=== PATIENT | female | born 1990 | race Caucasian/White ===

== ENCOUNTER 2017-03-30 08:23 | Outpatient (CLI) | payer OTHER ==
--- NOTE | 2017-03-30 11:31 | Ultrasound Report ---
RIGHT UPPER QUADRANT ULTRASOUND: 03/30/2017 CLINICAL INDICATION: Abnormal LFTs. TECHNIQUE: Real-time scanning was performed with financial services sales representative static images obtained. FINDINGS: The liver measures 15.4 cm. Hepatic echotexture is normal. No intrahepatic biliary dilatat ion or focal parenchymal lesion is present. The common bile duct measures 3 mm. The gallbladder is no rmal. The right kidney measures 9.7 cm, and demonstrates no hydronephrosis. No free fluid is present. IMPRESSION: NORMAL RIGHT UPPER QUADRANT ULTRASOUND. JOB #: [id number] EXT JOB #:[id number]
== END 2017-03-30 08:24 | disposition home or self-care (01) ==
LOC: DI 08:23
PROVIDERS: ATTEND Physician Assistant
DX: R94.5 Abnormal results of liver function studies (principal)
CPT/HCPCS: 76705

== ENCOUNTER 2017-12-08 08:59 | Outpatient (CLI) | payer OTHER ==
[2017-12-08 12:06] VITALS: BP 127/79
--- NOTE | 2017-12-08 12:42 | HISTORY & PHYSICAL EXAMINATION ---
DATE OF SERVICE: 12/08/2017 Physician: Edgar Bradley MD DIAGNOSES 1. Decreased movement. 2. Reactive nonstress test (NST). HISTORY OF PRESENT ILLNESS: The patient is a 27-year-old multiparous woman, at 38 weeks' gestation, who notes decreased movement. She receives her care at the [facility] clinic, which is currently on bypass status. Over the last 10 hours she does not notice much movement, despite hydration and stimulating the fetus. She has no history of gestational diabetes, hypertension, or other increased risk. There are no signs or symptoms of preeclampsia. She does not relate any significant contractions, but believes she has lost her mucous plug. External tracing is category 1. Baseline is in the 130s with moderate variability and appropriate decelerations to meet criteria (over 15 beats sustained for 15 minutes in a 20-minute window). ASSESSMENT: Reactive nonstress test (NST). PLAN: I reviewed signs and symptoms of labor and callback instructions. She will follow up as previously scheduled at the [facility]. TD: 12/08/2017 11:57
== END 2017-12-08 10:30 | disposition home or self-care (01) ==
LOC: WFO 08:59 → FBP 09:04 → WFO 10:30
PROVIDERS: ATTEND Obstetrics & Gynecology
DX: O36.8130 Decreased fetal movements, third trimester, not applicable or unspecified (principal); Z3A.38 38 weeks gestation of pregnancy
CPT/HCPCS: 59025

== ENCOUNTER 2017-12-19 12:21 | Emergency (ER) | payer OTHER ==
[2017-12-19 12:41] VITALS: BP 114/74
--- NOTE | 2017-12-19 13:18 | ED Physician Documentation ---
PD HPI ABD PAIN - Stated complaint Stated Complaint: ABD PX/ 5 DAY POSTPARDOM - Chief complaint Chief Complaint: Abd Pain - History obtained from History obtained from: Patient - History of Present Illness Timing - onset: Today Timing - duration: Hours (2-3) Timing - details: Abrupt onset, Still present (though decreasing) Quality: Cramping, Aching (she has had mild cramping since delivery 5 days ago with mild vaginal bleeding and some clots. Today had severe cramp develop, worse than with labor, in left lower abd/pelvic area. It persisted cramping for an hour or so and so she headed to ER. It is easing on arrival and into the ER.) . No: Fullness/distended Location: Suprapubic, LLQ Radiation: Lower back. No: Left flank, Right flank Improved by: Position (knees drawn up). No: Eating Worsened by: No: Eating, Breathing, Position Associated symptoms: Nausea, Loss of appetite, Vaginal bleeding (expected amount post , per patient (this is her third delivery)). No: Fever, Vomiting, Diarrhea, Dysuria, Vaginal dc Recently seen: Admitted (had vaginal delivery with epidural 5 days ago. is acting okay.) Review of Systems Constitutional: denies: Fever, Chills Nose: denies: Rhinorrhea / runny nose, Congestion Throat: denies: Sore throat Respiratory: denies: Cough GI: reports: Abdominal Pain, Nausea. denies: Abdominal Swelling, Vomiting, Constipation (but only one soft BM since delivery), Diarrhea : denies: Dysuria, Frequency Skin: denies: Rash, Lesions Neurologic: reports: Generalized weakness. denies: Focal weakness, Numbness, Near syncope, Altered mental status, Headache Endocrine: denies: Easy bruising / bleeding Immunocompromised: denies: Immunocompromised PD PAST MEDICAL HISTORY - Past Medical History Past Medical History: No - Past Surgical History HEENT: Tonsil/Adenoidectomy - Present Medications Home Medications: Ambulatory Orders Medication Instructions Recorded Confirmed No Known Home Medications [No 12/19/17 12/19/17 Known Home Medications] - Allergies Allergies/Adverse Reactions: Allergies Allergy/AdvReac Type Severity Reaction Status Date / Time No Known Drug Allergies Allergy Verified 12/19/17 12:40 - Social History Does the pt smoke?: No Smoking Status: Never smoker Does the pt drink ETOH?: No Does the pt have substance abuse?: No PD ED PE NORMAL - Vitals Vital signs reviewed: Yes - General General: Alert and oriented X 3, No acute distress, Well developed/nourished - HEENT HEENT: Pharynx benign - Neck Neck: Supple, no meningeal sign, No adenopathy - Cardiac Cardiac: RRR, No murmur - Respiratory Respiratory: Clear bilaterally - Abdomen Abdomen: Normal bowel sounds, Soft, Non distended, No organomegaly, Other ( tender left lower abd without guarding nor percussion/rebound tenderness. ) - Female Female : Other (did not get to it, if needed) - Rectal Rectal: Deferred - Back Back: No CVA TTP - Derm Derm: Normal color, Warm and dry - Extremities Extremities: No deformity, No tenderness to palpate, No edema, No calf tenderness / cord - Neuro Neuro: Alert and oriented X 3, No motor deficit, Normal speech Results - Vitals Vitals: Vital Signs - 24 hr 12/19/17 12:34 Temperature 36.3 C L Heart Rate 66 Respiratory 18 Rate Blood Pressure 114/74 O2 Saturation 98 Oxygen O2 Source Room air - Labs Labs: Laboratory Tests 12/19/17 13:50 Urine Color YELLOW Urine Clarity CLEAR Urine pH 6.0 Ur Specific [place] 1.020 Urine Protein NEGATIVE Urine Glucose (UA) NEGATIVE Urine Ketones NEGATIVE Urine Occult Blood LARGE H Urine Nitrite NEGATIVE Urine Bilirubin NEGATIVE Urine Urobilinogen 0.2 (NORMAL) Ur Leukocyte Esterase NEGATIVE Urine RBC 11-25 H Urine WBC 0-3 Ur Squamous Epith Cells MOD Squamous H Urine Bacteria Few Ur Microscopic Review INDICATED Urine Culture Comments NOT INDICATED PD MEDICAL DECISION MAKING - ED course Complexity details: re-evaluated patient (ER was busy and U/S had some backup. Patient felt better and she wanted to go home, return if symptoms again. She was wanting to nurse her and did not want the baby to come back into the ER from the waiting room. ), considered differential (consider ovarian cyst or torsion, does not seem to have signs of infection. Consider ureteral stone. I would get U/S to evaluate ovaries and potential retained products. Might have been strong uterine contraction if passing a clot. ), d/w patient - Sepsis Event Vital Signs: Vital Signs - 24 hr 12/19/17 12:34 Temperature 36.3 C L Heart Rate 66 Respiratory 18 Rate Blood Pressure 114/74 O2 Saturation 98 Oxygen O2 Source Room air Departure - Departure Disposition: 07 Against Medical Advice Clinical Impression: Abdominal pain Qualifiers: Abdominal location: left lower quadrant Qualified Code(s): R10.32 - Left lower quadrant pain Condition: Stable Record reviewed to determine appropriate education?: Yes Follow-Up: Edgar Zuñiga MD [Primary Care Provider] - Comments: Return if pain recurs, or if you develop fevers, vomiting, bloody stools, unusual vaginal discharge/bleeding, etc. Discharge Date/Time: 12/19/17 14:14
[2017-12-19 14:15] LABS: BILIRUBIN,URINE NEGATIVE (NEGATIVE); GLUCOSE, URINE (UA) NEGATIVE (NEGATIVE); KETONES,URINE (UA) NEGATIVE (NEGATIVE); LEUKOCYTE ESTERASE, URINE NEGATIVE (NEGATIVE); NITRITE,URINE NEGATIVE (NEGATIVE); OCCULT BLOOD,URINE LARGE (NEGATIVE); PROTEIN,URINE NEGATIVE (NEGATIVE); UROBILINOGEN,URINE 0.2 (NORMAL) E.U./dL (NORMAL)
[2017-12-19 14:16] LABS: CLARITY,URINE CLEAR (CLEAR)
[2017-12-19 14:25] LABS: BACTERIA,URINE Few /HPF (None Seen); SQUAMOUS EPITHELIAL CELL,UR MOD Squamous (<= Few)
== END 2017-12-19 14:14 | disposition left against medical advice (07) ==
LOC: ED 12:21
DX: Z53.20 Procedure and treatment not carried out because of patient's decision for unspecified reasons (principal); O99.89 Other specified diseases and conditions complicating pregnancy, childbirth and the puerperium; R10.32 Left lower quadrant pain; N93.9 Abnormal uterine and vaginal bleeding, unspecified
CPT/HCPCS: 81001; 81003; 87086; 99283

== ENCOUNTER 2022-04-23 18:03 | Emergency (ER) | payer OTHER ==
--- OUTSIDE RECORDS SUMMARY | 2022-04-23 18:39 | EXTERNAL MEDICAL SUMMARY RPT | Continuity of Care Document ---
:1990 Author Organization [facility] Address [address] [place] [address] Phone Allergies No information. Encounters No information. Functional Status No information. Immunizations No information. Medications No information. Problems No information. Procedures No information. Results/Labs test date author facility value unit interpret ation Result panel 1 (unknown) (no (unknown) (unknown) (no value) (units (unk nown) date) unknown) (unknown) (no (unknown) (unknown) 02/16/22 (units (unkno wn) date) unknown) (unknown) (no (unknown) (unknown) [address] [place] [address] (units (unknown) date) unknown) (unknown) (no (unknown) (unknown) 7.9 cc. The (units (un known) date) ovaries have a unknown) normal sonographic appearance. Multiple follicles (unknown) (no (unknown) (unknown) : [id number] (units (u nknown) date) unknown) (unknown) (no (unknown) (unknown) Accession (units (unkn own) date) Number: unknown) [id number] (unknown) (no (unknown) (unknown) Additional (units (unk nown) date) endovaginal unknown) scanning was necessary due to incomplete visualization (unknown) (no (unknown) (unknown) Age/Sex: 31 / F (units (unknown) date) Date of Service: unknown) (unknown) (no (unknown) (unknown) [place] (units ( unknown) date) [id number] unknown) (unknown) (no (unknown) (unknown) Approved by: (units (u nknown) date) Tc Lopez M.D. on unknown) 02/16/2022 at 8:50 (unknown) (no (unknown) (unknown) COMPARISON: (units (un known) date) None. unknown) (unknown) (no (unknown) (unknown) : 1990 (units (unknown) date) Acct:[id number] unknown) (unknown) (no (unknown) (unknown) Dictated by: (units (u nknown) date) Tc Lopez M.D. on unknown) 02/16/2022 at 8:37 (unknown) (no (unknown) (unknown) FINDINGS: (units (unkn own) date) unknown) (unknown) (no (unknown) (unknown) IMPRESSION: (units (un known) date) Pelvic ultrasound unknown) without acute sonographic abnormalities. (unknown) (no (unknown) (unknown) INDICATIONS: (units (u nknown) date) pelvic pain and unknown) cramping (unknown) (no (unknown) (unknown) [facility] (units (unknown) date) unknown) (unknown) (no (unknown) (unknown) Loc: [place] (units (unkno wn) date) unknown) (unknown) (no (unknown) (unknown) Ordering (units (unkno wn) date) Provider: unknown) Jesus Manuel Ma MD (unknown) (no (unknown) (unknown) Other: No (units (unkn own) date) pathologic free unknown) abdominal or pelvic fluid. (unknown) (no (unknown) (unknown) Ovaries: The (units (u nknown) date) right ovary unknown) measures 3.6 x 2.8 x 2.8 cm, with a calculated (unknown) (no (unknown) (unknown) PROCEDURE: US (units ( unknown) date) PELVIC COMPLETE unknown) (unknown) (no (unknown) (unknown) Patient: (units (unkno wn) date) Iliana Lockwood unknown) A MR# (unknown) (no (unknown) (unknown) Procedure: US (units ( unknown) date) pelvic complete unknown) (unknown) (no (unknown) (unknown) Real-time (units (unkn own) date) scanning was unknown) performed of the pelvic organs, with image (unknown) (no (unknown) (unknown) Signed (units (unkno wn) date) unknown) (unknown) (no (unknown) (unknown) TECHNIQUE: (units (unk nown) date) unknown) (unknown) (no (unknown) (unknown) To assist (units (unkn own) date) unknown) (unknown) (no (unknown) (unknown) Ultrasound (units (unk nown) date) Report unknown) (unknown) (no (unknown) (unknown) Uterus: Uterus (units (unknown) date) is anteverted and unknown) normal in size at 9.1 x 3.8 x 6.0 cm. The (unknown) (no (unknown) (unknown) Vascular (units (unkno wn) date) waveforms are unknown) present within the bilateral ovaries. (unknown) (no (unknown) (unknown) We strive to (units (u nknown) date) produce accurate, unknown) complete, and clear reports of imaging services. (unknown) (no (unknown) (unknown) adnexal and (units (un known) date) endometrial unknown) structures by transabdominal scanning. (unknown) (no (unknown) (unknown) and voice (units (unkn own) date) recognition unknown) software. Therefore, it may contain abnormal punctuation, (unknown) (no (unknown) (unknown) are noted (units (unkn own) date) unknown) (unknown) (no (unknown) (unknown) documentation. (units (unknown) date) unknown) (unknown) (no (unknown) (unknown) homogeneous. The (units (unknown) date) endometrium unknown) measures 4 mm combined thickness. (unknown) (no (unknown) (unknown) in the bilateral (units (unknown) date) ovaries. No unknown) adnexal masses are seen. (unknown) (no (unknown) (unknown) inaccuracies. (units ( unknown) date) unknown) (unknown) (no (unknown) (unknown) insertions (units (unk nown) date) and/or omissions. unknown) Occasional wrong-word or sound-alike substitutions (unknown) (no (unknown) (unknown) may (units (unkno wn) date) unknown) (unknown) (no (unknown) (unknown) myometrium is (units ( unknown) date) unknown) (unknown) (no (unknown) (unknown) occur. Though we (units (unknown) date) review the report unknown) and make efforts to correct it, we do (unknown) (no (unknown) (unknown) of 15 cc. The (units ( unknown) date) left ovary unknown) measures 2.1 x 2.9 x 2.5 cm, with a calculated ovarian (unknown) (no (unknown) (unknown) of the (units (unkno wn) date) unknown) (unknown) (no (unknown) (unknown) ovarian volume (units (unknown) date) unknown) (unknown) (no (unknown) (unknown) recommend that (units (unknown) date) unknown) (unknown) (no (unknown) (unknown) templates (units (unkn own) date) unknown) (unknown) (no (unknown) (unknown) the report be (units ( unknown) date) read carefully in unknown) proper context to recognize any text (unknown) (no (unknown) (unknown) us in improving (units (unknown) date) patient care, unknown) this report was composed using standard report (unknown) (no (unknown) (unknown) volume of (units (unkn own) date) unknown) Result panel 2 (unknown) (no (unknown) (unknown) (no value) (units (unk nown) date) unknown) (unknown) (no (unknown) (unknown) 03/22/22 (units (unkno wn) date) unknown) (unknown) (no (unknown) (unknown) Age/Sex: 32 / F (units (unknown) date) Date of Service: unknown) (unknown) (no (unknown) (unknown) [place] (units ( unknown) date) [id number] unknown) (unknown) (no (unknown) (unknown) Attending Dr: (units ( unknown) date) Jesus Manuel Ma unknown) (unknown) (no (unknown) (unknown) : 1990 (units (unknown) date) Acct:[id number] unknown) (unknown) (no (unknown) (unknown) Dept at (units (unkno wn) date) . unknown) (unknown) (no (unknown) (unknown) Documented By: (units (unknown) date) Jesus Manuel Ma unknownShe MATUTE 03/22/22 1501 (unknown) (no (unknown) (unknown) Draft (units (unkno wn) date) unknown) (unknown) (no (unknown) (unknown) [facility] ([facility]) (unknown) (no (unknown) (unknown) Gynecology Visit (units (unknown) date) unknown) (unknown) (no (unknown) (unknown) Intake (units (unkno wn) date) unknown) (unknown) (no (unknown) (unknown) Loc: [facility] (units (unkno wn) date) unknown) (unknown) (no (unknown) (unknown) [id number] (units (unk nown) date) unknown) (unknown) (no (unknown) (unknown) Patient: (units (unkno wn) date) Iliana Lockwood unknown) Abdiaziz MR#: (unknown) (no (unknown) (unknown) Reason For Visit (units (unknown) date) unknown) (unknown) (no (unknown) (unknown) Signed By: (units (unk nown) date) unknown) (unknown) (no (unknown) (unknown) This note may (units ( unknown) date) have been all or unknown) partially generated using voice recognition (unknown) (no (unknown) (unknown) Visit Reasons: (units (unknown) date) 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 (units (unknown) date) If there are any unknown) questions, please contact the Medical Records (unknown) (no (unknown) (unknown) may occur. (units (unk nown) date) Occasional unknown) wrong-word or 'sound-alike' substitutions may have (unknown) (no (unknown) (unknown) occurred due to (units (unknown) date) the inherent unknown) limitations of voice recognition software. Please (unknown) (no (unknown) (unknown) read the note (units ( unknown) date) carefully and unknown) recognize, using context, where these substitutions (unknown) (no (unknown) (unknown) software. (units (unkn own) date) Although every unknown) effort is made to edit content, hot car operator errors Result panel 3 (unknown) (no (unknown) (unknown) (no value) (units (unk nown) date) unknown) (unknown) (no (unknown) (unknown) 03/22/22 (units (unkno wn) date) unknown) (unknown) (no (unknown) (unknown) 15:06 (units (unkno wn) date) unknown) (unknown) (no (unknown) (unknown) Age/Sex: 32 / F (units (unknown) date) Date of Service: unknown) (unknown) (no (unknown) (unknown) Allergies (units (unkn own) date) unknown) (unknown) (no (unknown) (unknown) [place], [place] (units ( unknown) date) [id number] unknown) (unknown) (no (unknown) (unknown) Attending Dr: (units ( unknown) date) Jesus Manuel Ma unknown) (unknown) (no (unknown) (unknown) BMI 25.8 (units (unkno wn) date) unknown) (unknown) (no (unknown) (unknown) BP 112/66 (units (unkn own) date) unknown) (unknown) (no (unknown) (unknown) Blood Pressure (units (unknown) date) Location Rt unknown) brachial (unknown) (no (unknown) (unknown) : 1990 (units (unknown) date) Acct:[id number] unknown) (unknown) (no (unknown) (unknown) Date of Last (units (u nknown) date) Menstrual Period: unknown) 03/08/22 (unknown) (no (unknown) (unknown) Dept at (units (unkno wn) date) . unknown) (unknown) (no (unknown) (unknown) Documented By: (units (unknown) date) Jesus Manuel Ma unknownShe MATUTE 03/22/22 1501 (unknown) (no (unknown) (unknown) Draft (units (unkno wn) date) unknown) (unknown) (no (unknown) (unknown) [facility]) (unknown) (no (unknown) (unknown) Gynecology Visit (units (unknown) date) unknown) (unknown) (no (unknown) (unknown) Height 5 ft 8 in (units (unknown) date) unknown) (unknown) (no (unknown) (unknown) Intake Note: (units (u nknown) date) unknown) (unknown) (no (unknown) (unknown) Intake performed (units (unknown) date) by: unknown) Erica Ch (unknown) (no (unknown) (unknown) Intake (units (unkno wn) date) unknown) (unknown) (no (unknown) (unknown) Intake- Clincial (units (unknown) date) Staff unknown) (unknown) (no (unknown) (unknown) Is last (units (unkno wn) date) menstrual period unknown) known: Yes (unknown) (no (unknown) (unknown) Last Menstural (units (unknown) date) Cycle + Details unknown) (unknown) (no (unknown) (unknown) Loc: [facility] (units (unkno wn) date) unknown) (unknown) (no (unknown) (unknown) [phone] (units (unk nown) date) unknown) (unknown) (no (unknown) (unknown) Medications (units (un known) date) unknown) (unknown) (no (unknown) (unknown) No Known Drug (units ( unknown) date) Allergies Allergy unknown) (Unverified 03/22/22 15:08) (unknown) (no (unknown) (unknown) No Known Home (units ( unknown) date) Medications unknown) 03/22/22 [History Confirmed 03/22/22] (unknown) (no (unknown) (unknown) 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 unknown) and poss hyperplasia (unknown) (no (unknown) (unknown) PFSH (units (unkno wn) date) unknown) (unknown) (no (unknown) (unknown) Patient: (units (unkno wn) date) Iliana Lockwood unknown) A MR#: (unknown) (no (unknown) (unknown) Position Sitting (units (unknown) date) unknown) (unknown) (no (unknown) (unknown) Reason For Visit (units (unknown) date) unknown) (unknown) (no (unknown) (unknown) Signed By: (units (unk nown) date) unknown) (unknown) (no (unknown) (unknown) Smoking Status: (units (unknown) date) Former smoker unknown) (unknown) (no (unknown) (unknown) This note may (units ( unknown) date) have been all or unknown) partially generated using voice recognition (unknown) (no (unknown) (unknown) Tobacco + (units (unkn own) date) Substance Use unknown) (unknown) (no (unknown) (unknown) Tobacco Status (units (unknown) date) unknown) (unknown) (no (unknown) (unknown) Visit Reasons: (units (unknown) date) 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 (units (unknown) date) If there are any unknown) questions, please contact the Medical Records (unknown) (no (unknown) (unknown) may occur. (units (unk nown) date) Occasional unknown) wrong-word or 'sound-alike' substitutions may have (unknown) (no (unknown) (unknown) occurred due to (units (unknown) date) the inherent unknown) limitations of voice recognition software. Please (unknown) (no (unknown) (unknown) pain. no (units (unkno wn) date) bleeding. unknown) happening since June (unknown) (no (unknown) (unknown) pelvis floor (units (u nknown) date) problems, unknown) randomly feels like she is going to pee her pants (unknown) (no (unknown) (unknown) pt states it (units (u nknown) date) feels like she is unknown) on her period all month with cramping and back (unknown) (no (unknown) (unknown) read the note (units ( unknown) date) carefully and unknown) recognize, using context, where these substitutions (unknown) (no (unknown) (unknown) software. (units (unkn own) date) Although every unknown) effort is made to edit content, hot car operator errors Result panel 4 (unknown) (no (unknown) (unknown) (no value) (units (unk nown) date) unknown) (unknown) (no (unknown) (unknown) 03/22/22 (units (unkno wn) date) unknown) (unknown) (no (unknown) (unknown) 15:06 (units (unkno wn) date) unknown) (unknown) (no (unknown) (unknown) Age/Sex: 32 / F (units (unknown) date) Date of Service: unknown) (unknown) (no (unknown) (unknown) Allergies (units (unkn own) date) unknown) (unknown) (no (unknown) (unknown) [place], [place] (units ( unknown) date) [id number] unknown) (unknown) (no (unknown) (unknown) Attending Dr: (units ( unknown) date) Jesus Manuel Ma unknown) (unknown) (no (unknown) (unknown) BMI 25.8 (units (unkno wn) date) unknown) (unknown) (no (unknown) (unknown) BP 112/66 (units (unkn own) date) unknown) (unknown) (no (unknown) (unknown) Blood Pressure (units (unknown) date) Location Rt unknown) brachial (unknown) (no (unknown) (unknown) Chief Complaint (units (unknown) date) unknown) (unknown) (no (unknown) (unknown) Chief Complaint: (units (unknown) date) Lower abdominal unknown) pain (unknown) (no (unknown) (unknown) Iliana is a (units (unknown) date) 32-year-old unknown) A1 (unknown) (no (unknown) (unknown) : 1990 (units (unknown) date) Acct:[id number] unknown) (unknown) (no (unknown) (unknown) Date of Last (units (u nknown) date) Menstrual Period: unknown) 03/08/22 (unknown) (no (unknown) (unknown) Dept at (units (unkno wn) date) . unknown) (unknown) (no (unknown) (unknown) Details: (units (unkno wn) date) unknown) (unknown) (no (unknown) (unknown) Documented By: (units (unknown) date) Jesus Manuel Ma unknown) 03/22/22 1501 (unknown) (no (unknown) (unknown) Draft (units (unkno wn) date) unknown) (unknown) (no (unknown) (unknown) [facility]) (unknown) (no (unknown) (unknown) Gynecology Visit (units (unknown) date) unknown) (unknown) (no (unknown) (unknown) HPI (units (unkno wn) date) unknown) (unknown) (no (unknown) (unknown) Height 5 ft 8 in (units (unknown) date) unknown) (unknown) (no (unknown) (unknown) Intake Note: (units (u nknown) date) unknown) (unknown) (no (unknown) (unknown) Intake performed (units (unknown) date) by: unknown) Erica Ch (unknown) (no (unknown) (unknown) Intake (units (unkno wn) date) unknown) (unknown) (no (unknown) (unknown) Intake- Clincial (units (unknown) date) Staff unknown) (unknown) (no (unknown) (unknown) Is last (units (unkno wn) date) menstrual period unknown) known: Yes (unknown) (no (unknown) (unknown) Last Menstural (units (unknown) date) Cycle + Details unknown) (unknown) (no (unknown) (unknown) Loc: [facility] (units (unkno wn) date) unknown) (unknown) (no (unknown) (unknown) [id number] (units (unk nown) date) unknown) (unknown) (no (unknown) (unknown) Medications (units (un known) date) unknown) (unknown) (no (unknown) (unknown) No Known Drug (units ( unknown) date) Allergies Allergy unknown) (Unverified 03/22/22 15:08) (unknown) (no (unknown) (unknown) No Known Home (units ( unknown) date) Medications unknown) 03/22/22 [History Confirmed 03/22/22] (unknown) (no (unknown) (unknown) 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 unknown) and poss hyperplasia (unknown) (no (unknown) (unknown) PFSH (units (unkno wn) date) unknown) (unknown) (no (unknown) (unknown) Patient: (units (unkno wn) date) PastorIliana orozco unknown) A MR#: (unknown) (no (unknown) (unknown) Position Sitting (units (unknown) date) unknown) (unknown) (no (unknown) (unknown) Reason For Visit (units (unknown) date) unknown) (unknown) (no (unknown) (unknown) Signed By: (units (unk nown) date) unknown) (unknown) (no (unknown) (unknown) Smoking Status: (units (unknown) date) Former smoker unknown) (unknown) (no (unknown) (unknown) This note may (units ( unknown) date) have been all or unknown) partially generated using voice recognition (unknown) (no (unknown) (unknown) Tobacco + (units (unkn own) date) Substance Use unknown) (unknown) (no (unknown) (unknown) Tobacco Status (units (unknown) date) unknown) (unknown) (no (unknown) (unknown) Visit Reasons: (units (unknown) date) 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 (units (unknown) date) If there are any unknown) questions, please contact the Medical Records (unknown) (no (unknown) (unknown) may occur. (units (unk nown) date) Occasional unknown) wrong-word or 'sound-alike' substitutions may have (unknown) (no (unknown) (unknown) occurred due to (units (unknown) date) the inherent unknown) limitations of voice recognition software. Please (unknown) (no (unknown) (unknown) pain. no (units (unkno wn) date) bleeding. unknown) happening since June (unknown) (no (unknown) (unknown) pelvis floor (units (u nknown) date) problems, unknown) randomly feels like she is going to pee her pants (unknown) (no (unknown) (unknown) pt states it (units (u nknown) date) feels like she is unknown) on her period all month with cramping and back (unknown) (no (unknown) (unknown) read the note (units ( unknown) date) carefully and unknown) recognize, using context, where these substitutions (unknown) (no (unknown) (unknown) software. (units (unkn own) date) Although every unknown) effort is made to edit content, hot car operator errors Result panel 5 (unknown) (no (unknown) (unknown) (no value) (units (unk nown) date) unknown) (unknown) (no (unknown) (unknown) (Localized (units (unk nown) date) tenderness unknown) primarily in the right lower quadrant) (unknown) (no (unknown) (unknown) 10 month history (units (unknown) date) of intermittent unknown) lower abdominal pain which radiates to the low (unknown) (no (unknown) (unknown) 03/22/22 (units (unkno wn) date) unknown) (unknown) (no (unknown) (unknown) 15:06 (units (unkno wn) date) unknown) (unknown) (no (unknown) (unknown) Affect: normal (units (unknown) date) affect unknown) (unknown) (no (unknown) (unknown) Age/Sex: 32 / F (units (unknown) date) Date of Service: unknown) (unknown) (no (unknown) (unknown) Allergies (units (unkn own) date) unknown) (unknown) (no (unknown) (unknown) [place], [place] (units ( unknown) date) [id number] unknown) (unknown) (no (unknown) (unknown) Appearance: (units (un known) date) grossly normal unknown) (unknown) (no (unknown) (unknown) Attending Dr: (units ( unknown) date) Jesus Manuel Ma unknown) (unknown) (no (unknown) (unknown) Attitude: (units (unkn own) date) cooperative unknown) (unknown) (no (unknown) (unknown) BMI 25.8 (units (unkno wn) date) unknown) (unknown) (no (unknown) (unknown) BP 112/66 (units (unkn own) date) unknown) (unknown) (no (unknown) (unknown) Bimanual Exam- (units (unknown) date) Adnexa, other: unknown) normal adnexae, adnexae mobile, non-tender, No (unknown) (no (unknown) (unknown) Bimanual Exam- (units (unknown) date) Vagina + Uterus: unknown) normal bimanual exam, normal palpation, uterine (unknown) (no (unknown) (unknown) Blood Pressure (units (unknown) date) Location Rt unknown) brachial (unknown) (no (unknown) (unknown) Chief Complaint (units (unknown) date) unknown) (unknown) (no (unknown) (unknown) Chief Complaint: (units (unknown) date) Lower abdominal unknown) pain (unknown) (no (unknown) (unknown) Iliana is a (units (unknown) date) 32-year-old unknown) A1, LMP 03/08/2022 who presents with a (unknown) (no (unknown) (unknown) Conjunctivae: (units ( unknown) date) conjunctivae unknown) normal (unknown) (no (unknown) (unknown) Const (units (unkno wn) date) unknown) (unknown) (no (unknown) (unknown) : 1990 (units (unknown) date) Acct:[id number] unknown) (unknown) (no (unknown) (unknown) Date of Last (units (u nknown) date) Menstrual Period: unknown) 03/08/22 (unknown) (no (unknown) (unknown) Dept at (units (unkno wn) date) . unknown) (unknown) (no (unknown) (unknown) Details: (units (unkno wn) date) unknown) (unknown) (no (unknown) (unknown) Documented By: (units (unknown) date) Jesus Manuel Ma unknown) 03/22/22 1501 (unknown) (no (unknown) (unknown) Draft (units (unkno wn) date) unknown) (unknown) (no (unknown) (unknown) EOM: EOM intact (units (unknown) date) bilaterally unknown) (unknown) (no (unknown) (unknown) Ears: hearing (units ( unknown) date) grossly normal unknown) bilaterally (unknown) (no (unknown) (unknown) Effort + (units (unkno wn) date) Inspection: unknown) normal respiratory effort and able to speak in complete (unknown) (no (unknown) (unknown) Exam (units (unkno wn) date) unknown) (unknown) (no (unknown) (unknown) External Female (units (unknown) date) Exam: normal unknown) external appearance and normal appearance of the (unknown) (no (unknown) (unknown) Eyes (units (unkno wn) date) unknown) (unknown) (no (unknown) (unknown) Face and sinus: (units (unknown) date) face symmetric unknown) (unknown) (no (unknown) (unknown) [facility] ([facility]) (unknown) (no (unknown) (unknown) GI (units (unkno wn) date) unknown) (unknown) (no (unknown) (unknown) (units (unkno wn) date) unknown) (unknown) (no (unknown) (unknown) General: (units (unkno wn) date) appearance unknown) normal, both eyes and all related structures (unknown) (no (unknown) (unknown) General: (units (unkno wn) date) cooperative, unknown) comfortable and no acute distress (unknown) (no (unknown) (unknown) Gynecology Visit (units (unknown) date) unknown) (unknown) (no (unknown) (unknown) HENMT (units (unkno wn) date) unknown) (unknown) (no (unknown) (unknown) HPI (units (unkno wn) date) unknown) (unknown) (no (unknown) (unknown) Head: normal to (units (unknown) date) inspection, unknown) normocephalic and atraumatic (unknown) (no (unknown) (unknown) Height 5 ft 8 in (units (unknown) date) unknown) (unknown) (no (unknown) (unknown) Inspection: (units (un known) date) normal to unknown) inspection (unknown) (no (unknown) (unknown) Intake Note: (units (u nknown) date) unknown) (unknown) (no (unknown) (unknown) Intake performed (units (unknown) date) by: unknown) Erica Ch (unknown) (no (unknown) (unknown) Intake (units (unkno wn) date) unknown) (unknown) (no (unknown) (unknown) Intake- Clincial (units (unknown) date) Staff unknown) (unknown) (no (unknown) (unknown) Is last (units (unkno wn) date) menstrual period unknown) known: Yes (unknown) (no (unknown) (unknown) Judgment: (units (unkn own) date) judgment good unknown) (unknown) (no (unknown) (unknown) Last Menstural (units (unknown) date) Cycle + Details unknown) (unknown) (no (unknown) (unknown) Loc: [facility] (units (unkno wn) date) unknown) (unknown) (no (unknown) (unknown) [id number] (units (unk nown) date) unknown) (unknown) (no (unknown) (unknown) Medications (units (un known) date) unknown) (unknown) (no (unknown) (unknown) Mental Status: (units (unknown) date) mental status unknown) grossly normal (unknown) (no (unknown) (unknown) Mood: congruent (units (unknown) date) mood unknown) (unknown) (no (unknown) (unknown) Neck (units (unkno wn) date) unknown) (unknown) (no (unknown) (unknown) Neck: normal (units (u nknown) date) visual inspection unknown) (unknown) (no (unknown) (unknown) No Known Drug (units ( unknown) date) Allergies Allergy unknown) (Unverified 03/22/22 15:08) (unknown) (no (unknown) (unknown) No Known Home (units ( unknown) date) Medications unknown) 03/22/22 [History Confirmed 03/22/22] (unknown) (no (unknown) (unknown) 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 unknown) and poss hyperplasia (unknown) (no (unknown) (unknown) Nutritional (units (un known) date) Appearance: unknown) average body habitus (unknown) (no (unknown) (unknown) OB/External + (units ( unknown) date) Speculum: unknown) cervical os open and No vaginal bleeding (unknown) (no (unknown) (unknown) Orientation: (units (u nknown) date) alert and unknown) oriented x3 (unknown) (no (unknown) (unknown) PFSH (units (unkno wn) date) unknown) (unknown) (no (unknown) (unknown) Palpation: soft, (units (unknown) date) no unknown) hepatosplenomegal y, no hernias, no masses and tender (unknown) (no (unknown) (unknown) Patient: (units (unkno wn) date) Mandie,Iliana unknown) A MR#: (unknown) (no (unknown) (unknown) Position Sitting (units (unknown) date) unknown) (unknown) (no (unknown) (unknown) Problem-specific (units (unknown) date) ROS positives unknown) included with the HPI (unknown) (no (unknown) (unknown) Psych (units (unkno wn) date) unknown) (unknown) (no (unknown) (unknown) ROS Narrative (units ( unknown) date) unknown) (unknown) (no (unknown) (unknown) ROS Narrative: (units (unknown) date) unknown) (unknown) (no (unknown) (unknown) ROS (units (unkno wn) date) unknown) (unknown) (no (unknown) (unknown) Reason For Visit (units (unknown) date) unknown) (unknown) (no (unknown) (unknown) Recto-Vaginal: (units (unknown) date) no cul-de-sac unknown) fullness, no cul-de-sac tenderness and no (unknown) (no (unknown) (unknown) Resp (units (unkno wn) date) unknown) (unknown) (no (unknown) (unknown) Sclera: sclerae (units (unknown) date) normal unknown) (unknown) (no (unknown) (unknown) Signed By: (units (unk nown) date) unknown) (unknown) (no (unknown) (unknown) Smoking Status: (units (unknown) date) Former smoker unknown) (unknown) (no (unknown) (unknown) Speculum Exam - (units (unknown) date) Cervix: normal unknown) appearance of the cervix, cervical os open, no (unknown) (no (unknown) (unknown) Speculum Exam - (units (unknown) date) Vagina: normal unknown) appearance of the vagina, normal vaginal (unknown) (no (unknown) (unknown) Speculum Exam: (units (unknown) date) cervical os open unknown) and no vaginal bleeding (unknown) (no (unknown) (unknown) Speech and (units (unk nown) date) Movement: speech unknown) and movement normal (unknown) (no (unknown) (unknown) This note may (units ( unknown) date) have been all or unknown) partially generated using voice recognition (unknown) (no (unknown) (unknown) Thought Content: (units (unknown) date) normal unknown) (unknown) (no (unknown) (unknown) Thought Process: (units (unknown) date) normal unknown) (unknown) (no (unknown) (unknown) Tobacco + (units (unkn own) date) Substance Use unknown) (unknown) (no (unknown) (unknown) Tobacco Status (units (unknown) date) unknown) (unknown) (no (unknown) (unknown) Urethra: normal (units (unknown) date) appearance of the unknown) urethra (unknown) (no (unknown) (unknown) Visit Reasons: (units (unknown) date) 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 Patient (unknown) (no (unknown) (unknown) but she does (units (u nknown) date) pass clots on unknown) occasion. She denies any intermenstrual bleeding or (unknown) (no (unknown) (unknown) cervical (units (unkno wn) date) discharge and unknown) nontender (unknown) (no (unknown) (unknown) child. The (units (unk nown) date) patient describes unknown) the pain as being present almost continually but (unknown) (no (unknown) (unknown) cul-de-sac (units (unk nown) date) fullness, No unknown) cul-de-sac tenderness and No cul-de-sac nodularity (unknown) (no (unknown) (unknown) cul-de-sac (units (unk nown) date) nodularlity unknown) (unknown) (no (unknown) (unknown) department for (units (unknown) date) evaluation and unknown) treatment. She is not using control at (unknown) (no (unknown) (unknown) discharge, no (units ( unknown) date) lesions, No unknown) vaginal bleeding and nontender (unknown) (no (unknown) (unknown) dyspareunia. (units (u nknown) date) Review of systems unknown) is also notable for 2 months of urinary urgency (unknown) (no (unknown) (unknown) experienced (units (un known) date) menarche at age unknown) 13 and has had regular menses throughout her adult (unknown) (no (unknown) (unknown) have occurred. (units (unknown) date) If there are any unknown) questions, please contact the Medical Records (unknown) (no (unknown) (unknown) life but is not (units (unknown) date) sexually active unknown) at present. She has a long history of extreme (unknown) (no (unknown) (unknown) life. She (units (unkn own) date) currently has a unknown) 25 day cycle with 5 days of flow which is moderate (unknown) (no (unknown) (unknown) may occur. (units (unk nown) date) Occasional unknown) wrong-word or 'sound-alike' substitutions may have (unknown) (no (unknown) (unknown) midcycle (units (unkno wn) date) ovulatory pain unknown) for which she is actually been seen in emergency (unknown) (no (unknown) (unknown) notable for 3 (units ( unknown) date) spontaneous unknown) births with her largest being 8 lb 12 oz. (unknown) (no (unknown) (unknown) occurred due to (units (unknown) date) the inherent unknown) limitations of voice recognition software. Please (unknown) (no (unknown) (unknown) pain. She also (units (unknown) date) relates that she unknown) has in the past experienced mild deep (unknown) (no (unknown) (unknown) pain. no (units (unkno wn) date) bleeding. unknown) happening since June (unknown) (no (unknown) (unknown) particularly at (units (unknown) date) the midportion of unknown) her cycle when she typically has ovulatory (unknown) (no (unknown) (unknown) pelvis floor (units (u nknown) date) problems, unknown) randomly feels like she is going to pee her pants (unknown) (no (unknown) (unknown) postcoital (units (unk nown) date) bleeding. She has unknown) had no infertility issues during her reproductive (unknown) (no (unknown) (unknown) present but has (units (unknown) date) used a ParaGard unknown) IUD in the past after the of her 2nd (unknown) (no (unknown) (unknown) pt states it (units (u nknown) date) feels like she is unknown) on her period all month with cramping and back (unknown) (no (unknown) (unknown) read the note (units ( unknown) date) carefully and unknown) recognize, using context, where these substitutions (unknown) (no (unknown) (unknown) sentences (units (unkn own) date) unknown) (unknown) (no (unknown) (unknown) she does have (units (u nknown) date) extremely severe unknown) exacerbations associated with low back discomfort (unknown) (no (unknown) (unknown) size normal, (units (un known) date) normal palpation, unknown) uterine mobility normal, uterine shape normal, No (unknown) (no (unknown) (unknown) software. 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 Patient's OB history is Result panel 6 (unknown) (no (unknown) (unknown) (no value) (units (unk nown) date) unknown) (unknown) (no (unknown) (unknown) (1) Lower (units (unkn own) date) abdominal pain of unknown) unknown etiology: (unknown) (no (unknown) (unknown) (2) Ovulation (units ( unknown) date) pain: unknown) (unknown) (no (unknown) (unknown) (3) Urinary (units (un known) date) urgency: unknown) (unknown) (no (unknown) (unknown) (Localized (units (unk nown) date) tenderness unknown) primarily in the right lower quadrant) (unknown) (no (unknown) (unknown) 10 month history (units (unknown) date) of intermittent unknown) lower abdominal pain which radiates to the low (unknown) (no (unknown) (unknown) 03/22/22 (units (unkno wn) date) unknown) (unknown) (no (unknown) (unknown) [address] [place] [address] (units (unknown) date) unknown) (unknown) (no (unknown) (unknown) 15:06 (units (unkno wn) date) unknown) (unknown) (no (unknown) (unknown) 7.9 cc. The (units (un known) date) ovaries have a unknown) normal sonographic appearance.? Multiple follicles (unknown) (no (unknown) (unknown) ? (units (unkno wn) date) unknown) (unknown) (no (unknown) (unknown) ?? (units (unkno wn) date) unknown) (unknown) (no (unknown) (unknown) Accession (units (unkn own) date) Number: unknown) [id number] ?? (unknown) (no (unknown) (unknown) Acct:[id number] (units (unknown) date) unknown) (unknown) (no (unknown) (unknown) Additional (units (unkn own) date) endovaginal unknown) scanning was necessary due to incomplete visualization of (unknown) (no (unknown) (unknown) Affect: normal (units (unknown) date) affect unknown) (unknown) (no (unknown) (unknown) Age/Sex: 31 / F (units (unknown) date) unknown) (unknown) (no (unknown) (unknown) Age/Sex: 32 / F (units (unknown) date) Date of Service: unknown) (unknown) (no (unknown) (unknown) Allergies (units (unkn own) date) unknown) (unknown) (no (unknown) (unknown) [place], [place] (units ( unknown) date) [id number] unknown) (unknown) (no (unknown) (unknown) Appearance: (units (un known) date) grossly normal unknown) (unknown) (no (unknown) (unknown) Assessment + (units (u nknown) date) Plan unknown) (unknown) (no (unknown) (unknown) Attending Dr: (units ( unknown) date) Jesus Manuel Ma unknown) (unknown) (no (unknown) (unknown) Attitude: (units (unkn own) date) cooperative unknown) (unknown) (no (unknown) (unknown) BMI 25.8 (units (unkno wn) date) unknown) (unknown) (no (unknown) (unknown) BP 112/66 (units (unkn own) date) unknown) (unknown) (no (unknown) (unknown) Bimanual Exam- (units (unknown) date) Adnexa, other: unknown) normal adnexae, adnexae mobile, non-tender, No (unknown) (no (unknown) (unknown) Bimanual Exam- (units (unknown) date) Vagina + Uterus: unknown) normal bimanual exam, normal palpation, uterine (unknown) (no (unknown) (unknown) Blood Pressure (units (unknown) date) Location Rt unknown) brachial (unknown) (no (unknown) (unknown) COMPARISON:? (units (u nknown) date) None. unknown) (unknown) (no (unknown) (unknown) Chief Complaint (units (unknown) date) unknown) (unknown) (no (unknown) (unknown) Chief Complaint: (units (unknown) date) Lower abdominal unknown) pain (unknown) (no (unknown) (unknown) Iliana is a (units (unknown) date) 32-year-old unknown) A1, LMP 03/08/2022 who presents with a (unknown) (no (unknown) (unknown) Conjunctivae: (units ( unknown) date) conjunctivae unknown) normal (unknown) (no (unknown) (unknown) Const (units (unkno wn) date) unknown) (unknown) (no (unknown) (unknown) : 1990 (units (unknown) date) Acct:[id number] unknown) (unknown) (no (unknown) (unknown) : 1990 (units (unknown) date) unknown) (unknown) (no (unknown) (unknown) Date of Last (units (u nknown) date) Menstrual Period: unknown) 03/08/22 (unknown) (no (unknown) (unknown) Date of Service: (units (unknown) date) 02/16/22 unknown) (unknown) (no (unknown) (unknown) Dept at (units (unkno wn) date) . unknown) (unknown) (no (unknown) (unknown) Details: (units (unkno wn) date) unknown) (unknown) (no (unknown) (unknown) Documented By: (units (unknown) date) Jesus Manuel aM unknownShe MATUTE 03/22/22 1501 (unknown) (no (unknown) (unknown) Draft (units (unkno wn) date) unknown) (unknown) (no (unknown) (unknown) EOM: EOM intact (units (unknown) date) bilaterally unknown) (unknown) (no (unknown) (unknown) Ears: hearing (units ( unknown) date) grossly normal unknown) bilaterally (unknown) (no (unknown) (unknown) Effort + (units (unkno wn) date) Inspection: unknown) normal respiratory effort and able to speak in complete (unknown) (no (unknown) (unknown) Exam (units (unkno wn) date) unknown) (unknown) (no (unknown) (unknown) External Female (units (unknown) date) Exam: normal unknown) external appearance and normal appearance of the (unknown) (no (unknown) (unknown) Eyes (units (unkno wn) date) unknown) (unknown) (no (unknown) (unknown) FINDINGS:? (units (unk nown) date) unknown) (unknown) (no (unknown) (unknown) Face and sinus: (units (unknown) date) face symmetric unknown) (unknown) (no (unknown) (unknown) [facility]) (unknown) (no (unknown) (unknown) GI (units (unkno wn) date) unknown) (unknown) (no (unknown) (unknown) (units (unkno wn) date) unknown) (unknown) (no (unknown) (unknown) General: (units (unkno wn) date) appearance unknown) normal, both eyes and all related structures (unknown) (no (unknown) (unknown) General: (units (unkno wn) date) cooperative, unknown) comfortable and no acute distress (unknown) (no (unknown) (unknown) Gynecology Visit (units (unknown) date) unknown) (unknown) (no (unknown) (unknown) HENMT (units (unkno wn) date) unknown) (unknown) (no (unknown) (unknown) HPI (units (unkno wn) date) unknown) (unknown) (no (unknown) (unknown) Head: normal to (units (unknown) date) inspection, unknown) normocephalic and atraumatic (unknown) (no (unknown) (unknown) Height 5 ft 8 in (units (unknown) date) unknown) (unknown) (no (unknown) (unknown) IMPRESSION:? (units (u nknown) date) Pelvic ultrasound unknown) without acute sonographic abnormalities. (unknown) (no (unknown) (unknown) INDICATIONS:? (units ( unknown) date) pelvic pain and unknown) cramping (unknown) (no (unknown) (unknown) Inspection: (units (un known) date) normal to unknown) inspection (unknown) (no (unknown) (unknown) Intake Note: (units (u nknown) date) unknown) (unknown) (no (unknown) (unknown) Intake performed (units (unknown) date) by: unknown) Erica Ch (unknown) (no (unknown) (unknown) Intake (units (unkno wn) date) unknown) (unknown) (no (unknown) (unknown) Intake- Clincial (units (unknown) date) Staff unknown) (unknown) (no (unknown) (unknown) Is last (units (unkno wn) date) menstrual period unknown) known: Yes (unknown) (no (unknown) (unknown) [facility] (units (unknown) date) unknown) (unknown) (no (unknown) (unknown) Judgment: (units (unkn own) date) judgment good unknown) (unknown) (no (unknown) (unknown) Last Menstural (units (unknown) date) Cycle + Details unknown) (unknown) (no (unknown) (unknown) Loc: [facility] (units (unkno wn) date) unknown) (unknown) (no (unknown) (unknown) Loc: [place] (units (unkno wn) date) unknown) (unknown) (no (unknown) (unknown) [id number] (units (unk nown) date) unknown) (unknown) (no (unknown) (unknown) MR#: [id number] (units (unknown) date) unknown) (unknown) (no (unknown) (unknown) Medications (units (un known) date) unknown) (unknown) (no (unknown) (unknown) Mental Status: (units (unknown) date) mental status unknown) grossly normal (unknown) (no (unknown) (unknown) Mood: congruent (units (unknown) date) mood unknown) (unknown) (no (unknown) (unknown) Neck (units (unkno wn) date) unknown) (unknown) (no (unknown) (unknown) Neck: normal (units (u nknown) date) visual inspection unknown) (unknown) (no (unknown) (unknown) No Known Drug (units ( unknown) date) Allergies Allergy unknown) (Unverified 03/22/22 15:08) (unknown) (no (unknown) (unknown) No Known Home (units ( unknown) date) Medications unknown) 03/22/22 [History Confirmed 03/22/22] (unknown) (no (unknown) (unknown) 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 No (units (unk nown) date) pathologic free unknown) abdominal or pelvic fluid. (unknown) (no (unknown) (unknown) Ovaries:? The (units (u nknown) date) right ovary unknown) measures 3.6 x 2.8 x 2.8 cm, with a calculated ovarian (unknown) (no (unknown) (unknown) PFSH (units (unkno wn) date) unknown) (unknown) (no (unknown) (unknown) PROCEDURE:? US (units (unknown) date) PELVIC COMPLETE unknown) (unknown) (no (unknown) (unknown) Palpation: soft, (units (unknown) date) no unknown) hepatosplenomegal y, no hernias, no masses and tender (unknown) (no (unknown) (unknown) Paps. A recent (units (unknown) date) pelvic US unknown) performed 02/16/2022 showed: (unknown) (no (unknown) (unknown) Patient: (units (unkno wn) date) Iliana Lockwood unknown) A MR#: (unknown) (no (unknown) (unknown) Patient: (units (unkno wn) date) Iliana Lockwood unknown) A (unknown) (no (unknown) (unknown) Plan (units (unkno wn) date) unknown) (unknown) (no (unknown) (unknown) Position Sitting (units (unknown) date) unknown) (unknown) (no (unknown) (unknown) Problem-specific (units (unknown) date) ROS positives unknown) included with the HPI (unknown) (no (unknown) (unknown) Procedure: US (units ( unknown) date) pelvic complete unknown) (unknown) (no (unknown) (unknown) Psych (units (unkno wn) date) unknown) (unknown) (no (unknown) (unknown) ROS Narrative (units ( unknown) date) unknown) (unknown) (no (unknown) (unknown) ROS Narrative: (units (unknown) date) unknown) (unknown) (no (unknown) (unknown) ROS (units (unkno wn) date) unknown) (unknown) (no (unknown) (unknown) Real-time (units (unkn own) date) scanning was unknown) performed of the pelvic organs, with image (unknown) (no (unknown) (unknown) Reason For Visit (units (unknown) date) unknown) (unknown) (no (unknown) (unknown) Recto-Vaginal: (units (unknown) date) no cul-de-sac unknown) fullness, no cul-de-sac tenderness and no (unknown) (no (unknown) (unknown) Resp (units (unkno wn) date) unknown) (unknown) (no (unknown) (unknown) Sclera: sclerae (units (unknown) date) normal unknown) (unknown) (no (unknown) (unknown) Signed By: (units (unk nown) date) unknown) (unknown) (no (unknown) (unknown) Signed (units (unkno wn) date) unknown) (unknown) (no (unknown) (unknown) Smoking Status: (units (unknown) date) Former smoker unknown) (unknown) (no (unknown) (unknown) Speculum Exam - (units (unknown) date) Cervix: normal unknown) appearance of the cervix, cervical os open, no (unknown) (no (unknown) (unknown) Speculum Exam - (units (unknown) date) Vagina: normal unknown) appearance of the vagina, normal vaginal (unknown) (no (unknown) (unknown) Speculum Exam: (units (unknown) date) cervical os open unknown) and no vaginal bleeding (unknown) (no (unknown) (unknown) Speech and (units (unk nown) date) Movement: speech unknown) and movement normal (unknown) (no (unknown) (unknown) Status: Acute (units ( unknown) date) unknown) (unknown) (no (unknown) (unknown) TECHNIQUE:? (units (un known) date) unknown) (unknown) (no (unknown) (unknown) The nature the (units (unknown) date) patient's lower unknown) abdominal pain is uncertain. The right lower (unknown) (no (unknown) (unknown) This note may (units ( unknown) date) have been all or unknown) partially generated using voice recognition (unknown) (no (unknown) (unknown) Thought Content: (units (unknown) date) normal unknown) (unknown) (no (unknown) (unknown) Thought Process: (units (unknown) date) normal unknown) (unknown) (no (unknown) (unknown) Tobacco + (units (unkn own) date) Substance Use unknown) (unknown) (no (unknown) (unknown) Tobacco Status (units (unknown) date) unknown) (unknown) (no (unknown) (unknown) Ultrasound (units (unk nown) date) Report unknown) (unknown) (no (unknown) (unknown) Urethra: normal (units (unknown) date) appearance of the unknown) urethra (unknown) (no (unknown) (unknown) Uterus:? Uterus (units (unknown) date) is anteverted and unknown) normal in size at 9.1 x 3.8 x 6.0 cm. The (unknown) (no (unknown) (unknown) Vascular (units (unkno wn) date) waveforms are unknown) present within the bilateral ovaries. 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 (unknown) (no (unknown) (unknown) are noted (units (unkn own) date) unknown) (unknown) (no (unknown) (unknown) back and feels (units (unknown) date) like she is on unknown) her period when she in fact is not. Patient (unknown) (no (unknown) (unknown) but she does (units (u nknown) date) pass clots on unknown) occasion. She denies any intermenstrual bleeding or (unknown) (no (unknown) (unknown) cervical (units (unkno wn) date) discharge and unknown) nontender (unknown) (no (unknown) (unknown) child. The (units (unk nown) date) patient describes unknown) the pain as being present almost continually but (unknown) (no (unknown) (unknown) cul-de-sac (units (unk nown) date) fullness, No unknown) cul-de-sac tenderness and No cul-de-sac nodularity (unknown) (no (unknown) (unknown) cul-de-sac (units (unk nown) date) nodularlity unknown) (unknown) (no (unknown) (unknown) cycle and the (units ( unknown) date) pain she is unknown) experiencing. The option of ovulatory suppression (unknown) (no (unknown) (unknown) department for (units (unknown) date) evaluation and unknown) treatment. She is not using control at (unknown) (no (unknown) (unknown) discharge, no (units ( unknown) date) lesions, No unknown) vaginal bleeding and nontender (unknown) (no (unknown) (unknown) documentation.? (units (unknown) date) unknown) (unknown) (no (unknown) (unknown) dyspareunia. (units (u nknown) date) Review of systems unknown) is also notable for 2 months of urinary urgency (unknown) (no (unknown) (unknown) experienced (units (un known) date) menarche at age unknown) 13 and has had regular menses throughout her adult (unknown) (no (unknown) (unknown) have occurred. (units (unknown) date) If there are any unknown) questions, please contact the Medical Records (unknown) (no (unknown) (unknown) her perception (units (unknown) date) that the episodes unknown) of pain are more severe and frequent near the (unknown) (no (unknown) (unknown) homogeneous. ? (units (unknown) date) The endometrium unknown) measures 4 mm combined thickness.? (unknown) (no (unknown) (unknown) in the bilateral (units (unknown) date) ovaries.? No unknown) adnexal masses are seen. (unknown) (no (unknown) (unknown) life but is not (units (unknown) date) sexually active unknown) at present. She has a long history of extreme (unknown) (no (unknown) (unknown) life. She (units (unkn own) date) currently has a unknown) 25 day cycle with 5 days of flow which is moderate (unknown) (no (unknown) (unknown) may occur. (units (unk nown) date) Occasional unknown) wrong-word or 'sound-alike' substitutions may have (unknown) (no (unknown) (unknown) midcycle (units (unkno wn) date) ovulatory pain unknown) for which she is actually been seen in emergency (unknown) (no (unknown) (unknown) midcycle (units (unkno wn) date) suggests however unknown) that there may be some relation between her ovulatory (unknown) (no (unknown) (unknown) myometrium is (units ( unknown) date) unknown) (unknown) (no (unknown) (unknown) notable for 3 (units ( unknown) date) spontaneous unknown) births with her largest being 8 lb 12 oz. Her most (unknown) (no (unknown) (unknown) occurred due to (units (unknown) date) the inherent unknown) limitations of voice recognition software. Please (unknown) (no (unknown) (unknown) of 15 cc. The (units ( unknown) date) left ovary unknown) measures 2.1 x 2.9 x 2.5 cm, with a calculated ovarian (unknown) (no (unknown) (unknown) of lower (units (unkno wn) date) abdominal pain. unknown) Pelvic exam is unremarkable and there is no adnexal (unknown) (no (unknown) (unknown) origin (? cecum) (units (unknown) date) but she has unknown) absolutely no GI symptoms related to her episodes (unknown) (no (unknown) (unknown) pain. She also (units (unknown) date) relates that she unknown) has in the past experienced mild deep (unknown) (no (unknown) (unknown) pain. no (units (unkno wn) date) bleeding. unknown) happening since June (unknown) (no (unknown) (unknown) particularly at (units (unknown) date) the midportion of unknown) her cycle when she typically has ovulatory (unknown) (no (unknown) (unknown) pelvis floor (units (u nknown) date) problems, unknown) randomly feels like she is going to pee her pants (unknown) (no (unknown) (unknown) postcoital (units (unk nown) date) bleeding. She has unknown) had no infertility issues during her reproductive (unknown) (no (unknown) (unknown) present but has (units (unknown) date) used a ParaGard unknown) IUD in the past after the of her 2nd (unknown) (no (unknown) (unknown) pt states it (units (u nknown) date) feels like she is unknown) on her period all month with cramping and back (unknown) (no (unknown) (unknown) quadrant is (units (un known) date) tender with the unknown) area of primary tenderness seeming to be GI in (unknown) (no (unknown) (unknown) read the note (units ( unknown) date) carefully and unknown) recognize, using context, where these substitutions (unknown) (no (unknown) (unknown) recent Pap was (units (unknown) date) less than a year unknown) ago and it was normal as have been all prior (unknown) (no (unknown) (unknown) sentences (units (unkn own) date) unknown) (unknown) (no (unknown) (unknown) she does have (units (u nknown) date) extremely severe unknown) exacerbations associated with low back discomfort (unknown) (no (unknown) (unknown) size normal, (units (un known) date) normal palpation, unknown) uterine mobility normal, uterine shape normal, No (unknown) (no (unknown) (unknown) software. 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 (units (u nknown) date) unknown) (unknown) (no (unknown) (unknown) tender, (units (unkno wn) date) non-tender and unknown) other (Bladder mildly tender to palpation) (unknown) (no (unknown) (unknown) tenderness on (units ( unknown) date) either side. The unknown) patient's history of severe ovulatory pain and (unknown) (no (unknown) (unknown) the (units (unkno wn) date) unknown) (unknown) (no (unknown) (unknown) trial of (units (unkno wn) date) continuous OC use unknown) to see if her pain responds to ovarian cycle (unknown) (no (unknown) (unknown) urethra (units (unkno wn) date) unknown) (unknown) (no (unknown) (unknown) volume of (units (unkn own) date) unknown) (unknown) (no (unknown) (unknown) volume (units (unkno wn) date) unknown) (unknown) (no (unknown) (unknown) with continuous (units (unknown) date) oral unknown) contraceptives discussed and patient agrees to a 4 month (unknown) (no (unknown) (unknown) without urge (units (u nknown) date) incontinence or unknown) stress incontinence. Patient's OB history is Result panel 7 (unknown) (no (unknown) (unknown) (no value) (units (unk nown) date) unknown) (unknown) (no (unknown) (unknown) (1) Lower (units (unkn own) date) abdominal pain of unknown) unknown etiology: (unknown) (no (unknown) (unknown) (2) Ovulation (units ( unknown) date) pain: unknown) (unknown) (no (unknown) (unknown) (3) Urinary (units (un known) date) urgency: unknown) (unknown) (no (unknown) (unknown) (Localized (units (unk nown) date) tenderness unknown) primarily in the right lower quadrant) (unknown) (no (unknown) (unknown) 10 month history (units (unknown) date) of intermittent unknown) lower abdominal pain which radiates to the low (unknown) (no (unknown) (unknown) 03/22/22 (units (unkno wn) date) unknown) (unknown) (no (unknown) (unknown) 03/23/22 0954 (units ( unknown) date) unknown) (unknown) (no (unknown) (unknown) 03/23/22 [Rx (units (u nknown) date) Confirmed unknown) 03/23/22] (unknown) (no (unknown) (unknown) [address] [place] [address] (units (unknown) date) unknown) (unknown) (no (unknown) (unknown) 15:06 (units (unkno wn) date) unknown) (unknown) (no (unknown) (unknown) 7.9 cc. The (units (un known) date) ovaries have a unknown) normal sonographic appearance.? Multiple follicles (unknown) (no (unknown) (unknown) ? (units (unkno wn) date) unknown) (unknown) (no (unknown) (unknown) ?? (units (unkno wn) date) unknown) (unknown) (no (unknown) (unknown) Accession (units (unkn own) date) Number: unknown) [id number] ?? (unknown) (no (unknown) (unknown) Acct:[id number] (units (unknown) date) unknown) (unknown) (no (unknown) (unknown) Additional (units (unkn own) date) endovaginal unknown) scanning was necessary due to incomplete visualization of (unknown) (no (unknown) (unknown) Affect: normal (units (unknown) date) affect unknown) (unknown) (no (unknown) (unknown) Age/Sex: 31 / F (units (unknown) date) unknown) (unknown) (no (unknown) (unknown) Age/Sex: 32 / F (units (unknown) date) Date of Service: unknown) (unknown) (no (unknown) (unknown) Allergies (units (unkn own) date) unknown) (unknown) (no (unknown) (unknown) [place], [place] (units ( unknown) date) [id number] unknown) (unknown) (no (unknown) (unknown) Appearance: (units (un known) date) grossly normal unknown) (unknown) (no (unknown) (unknown) Assessment + (units (u nknown) date) Plan unknown) (unknown) (no (unknown) (unknown) Attending Dr: (units ( unknown) date) Jesus Manuel Ma unknown) (unknown) (no (unknown) (unknown) Attitude: (units (unkn own) date) cooperative unknown) (unknown) (no (unknown) (unknown) BMI 25.8 (units (unkno wn) date) unknown) (unknown) (no (unknown) (unknown) BP 112/66 (units (unkn own) date) unknown) (unknown) (no (unknown) (unknown) Bimanual Exam- (units (unknown) date) Adnexa, other: unknown) normal adnexae, adnexae mobile, non-tender, No (unknown) (no (unknown) (unknown) Bimanual Exam- (units (unknown) date) Vagina + Uterus: unknown) normal bimanual exam, normal palpation, uterine (unknown) (no (unknown) (unknown) Blood Pressure (units (unknown) date) Location Rt unknown) brachial (unknown) (no (unknown) (unknown) COMPARISON:? (units (u nknown) date) None. unknown) (unknown) (no (unknown) (unknown) Chief Complaint (units (unknown) date) unknown) (unknown) (no (unknown) (unknown) Chief Complaint: (units (unknown) date) Lower abdominal unknown) pain (unknown) (no (unknown) (unknown) Iliana is a (units (unknown) date) 32-year-old unknown) A1, LMP 03/08/2022 who presents with a (unknown) (no (unknown) (unknown) Conjunctivae: (units ( unknown) date) conjunctivae unknown) normal (unknown) (no (unknown) (unknown) Const (units (unkno wn) date) unknown) (unknown) (no (unknown) (unknown) Counseling and (units (unknown) date) educating the unknown) patient/family/ca regiver: 5 (unknown) (no (unknown) (unknown) : 1990 (units (unknown) date) Acct:[id number] unknown) (unknown) (no (unknown) (unknown) : 1990 (units (unknown) date) unknown) (unknown) (no (unknown) (unknown) Date of Last (units (u nknown) date) Menstrual Period: unknown) 03/08/22 (unknown) (no (unknown) (unknown) Date of Service: (units (unknown) date) 02/16/22 unknown) (unknown) (no (unknown) (unknown) Dept at (units (unkno wn) date) . unknown) (unknown) (no (unknown) (unknown) Details: (units (unkno wn) date) unknown) (unknown) (no (unknown) (unknown) Documented By: (units (unknown) date) Jesus Manuel Ma unknown) 03/22/22 1501 (unknown) (no (unknown) (unknown) Documenting (units (un known) date) clinical unknown) information in EHR/Medical record: 10 (unknown) (no (unknown) (unknown) EOM: EOM intact (units (unknown) date) bilaterally unknown) (unknown) (no (unknown) (unknown) Ears: hearing (units ( unknown) date) grossly normal unknown) bilaterally (unknown) (no (unknown) (unknown) Effort + (units (unkno wn) date) Inspection: unknown) normal respiratory effort and able to speak in complete (unknown) (no (unknown) (unknown) Exam (units (unkno wn) date) unknown) (unknown) (no (unknown) (unknown) External Female (units (unknown) date) Exam: normal unknown) external appearance and normal appearance of the (unknown) (no (unknown) (unknown) Eyes (units (unkno wn) date) unknown) (unknown) (no (unknown) (unknown) FINDINGS:? (units (unk nown) date) unknown) (unknown) (no (unknown) (unknown) Face and sinus: (units (unknown) date) face symmetric unknown) (unknown) (no (unknown) (unknown) [facility]) (unknown) (no (unknown) (unknown) Follow-up will (units (unknown) date) be in 4 months or unknown) as needed and a copy of this note will be (unknown) (no (unknown) (unknown) GI (units (unkno wn) date) unknown) (unknown) (no (unknown) (unknown) (units (unkno wn) date) unknown) (unknown) (no (unknown) (unknown) General: (units (unkno wn) date) appearance unknown) normal, both eyes and all related structures (unknown) (no (unknown) (unknown) General: (units (unkno wn) date) cooperative, unknown) comfortable and no acute distress (unknown) (no (unknown) (unknown) Gynecology Visit (units (unknown) date) unknown) (unknown) (no (unknown) (unknown) HENMT (units (unkno wn) date) unknown) (unknown) (no (unknown) (unknown) HPI (units (unkno wn) date) unknown) (unknown) (no (unknown) (unknown) Head: normal to (units (unknown) date) inspection, unknown) normocephalic and atraumatic (unknown) (no (unknown) (unknown) Height 5 ft 8 in (units (unknown) date) unknown) (unknown) (no (unknown) (unknown) IMPRESSION:? (units (u nknown) date) Pelvic ultrasound unknown) without acute sonographic abnormalities. (unknown) (no (unknown) (unknown) INDICATIONS:? (units ( unknown) date) pelvic pain and unknown) cramping (unknown) (no (unknown) (unknown) Inspection: (units (un known) date) normal to unknown) inspection (unknown) (no (unknown) (unknown) Intake Note: (units (u nknown) date) unknown) (unknown) (no (unknown) (unknown) Intake performed (units (unknown) date) by: unknown) Erica Ch (unknown) (no (unknown) (unknown) Intake (units (unkno wn) date) unknown) (unknown) (no (unknown) (unknown) Intake- Clincial (units (unknown) date) Staff unknown) (unknown) (no (unknown) (unknown) Is last (units (unkno wn) date) menstrual period unknown) known: Yes (unknown) (no (unknown) (unknown) [facility] (units (unknown) date) unknown) (unknown) (no (unknown) (unknown) Judgment: (units (unkn own) date) judgment good unknown) (unknown) (no (unknown) (unknown) Last Menstural (units (unknown) date) Cycle + Details unknown) (unknown) (no (unknown) (unknown) Loc: [facility] (units (unkno wn) date) unknown) (unknown) (no (unknown) (unknown) Loc: [place] (units (unkno wn) date) unknown) (unknown) (no (unknown) (unknown) [id number] (units (unk nown) date) unknown) (unknown) (no (unknown) (unknown) MR#: [id number] (units (unknown) date) unknown) (unknown) (no (unknown) (unknown) Medications (units (un known) date) unknown) (unknown) (no (unknown) (unknown) Medications: (units (u nknown) date) unknown) (unknown) (no (unknown) (unknown) Mental Status: (units (unknown) date) mental status unknown) grossly normal (unknown) (no (unknown) (unknown) Mood: congruent (units (unknown) date) mood unknown) (unknown) (no (unknown) (unknown) Neck (units (unkno wn) date) unknown) (unknown) (no (unknown) (unknown) Neck: normal (units (u nknown) date) visual inspection unknown) (unknown) (no (unknown) (unknown) New (units (unkno wn) date) unknown) (unknown) (no (unknown) (unknown) No Known Drug (units ( unknown) date) Allergies Allergy unknown) (Unverified 03/22/22 15:08) (unknown) (no (unknown) (unknown) 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 unknown) and poss hyperplasia (unknown) (no (unknown) (unknown) Nutritional (units (un known) date) Appearance: unknown) average body habitus (unknown) (no (unknown) (unknown) OB/External + (units ( unknown) date) Speculum: unknown) cervical os open and No vaginal bleeding (unknown) (no (unknown) (unknown) Obtaining and/or (units (unknown) date) reviewing unknown) separately obtained history: 5 (unknown) (no (unknown) (unknown) Ordering (units (unkno wn) date) Provider: unknown) Jesus Manuel Ma MD (unknown) (no (unknown) (unknown) Ordering (units (unkno wn) date) medications, unknown) tests, or procedures: 5 (unknown) (no (unknown) (unknown) Orders (units (unkno wn) date) unknown) (unknown) (no (unknown) (unknown) Orders: (units (unkno wn) date) unknown) (unknown) (no (unknown) (unknown) Orientation: (units (u nknown) date) alert and unknown) oriented x3 (unknown) (no (unknown) (unknown) Other:? No (units (unk nown) date) pathologic free unknown) abdominal or pelvic fluid. (unknown) (no (unknown) (unknown) Ovaries:? The (units (u nknown) date) right ovary unknown) measures 3.6 x 2.8 x 2.8 cm, with a calculated ovarian (unknown) (no (unknown) (unknown) PFSH (units (unkno wn) date) unknown) (unknown) (no (unknown) (unknown) PROCEDURE:? US (units (unknown) date) PELVIC COMPLETE unknown) (unknown) (no (unknown) (unknown) Palpation: soft, (units (unknown) date) no unknown) hepatosplenomegal y, no hernias, no masses and tender (unknown) (no (unknown) (unknown) Paps. A recent (units (unknown) date) pelvic US unknown) performed 02/16/2022 showed: (unknown) (no (unknown) (unknown) Patient: (units (unkno wn) date) Iliana Lockwood unknown) A MR#: (unknown) (no (unknown) (unknown) Patient: (units (unkno wn) date) Iliana Lockwood unknown) A (unknown) (no (unknown) (unknown) Performing a (units (u nknown) date) medically unknown) appropriate exam and/or evaluation: 5 (unknown) (no (unknown) (unknown) Plan (units (unkno wn) date) unknown) (unknown) (no (unknown) (unknown) Position Sitting (units (unknown) date) unknown) (unknown) (no (unknown) (unknown) Preparing to see (units (unknown) date) the patient, unknown) i.e., chart review, review of tests: 5 (unknown) (no (unknown) (unknown) Problem-specific (units (unknown) date) ROS positives unknown) included with the HPI (unknown) (no (unknown) (unknown) Procedure: US (units ( unknown) date) pelvic complete unknown) (unknown) (no (unknown) (unknown) Psych (units (unkno wn) date) unknown) (unknown) (no (unknown) (unknown) ROS Narrative (units ( unknown) date) unknown) (unknown) (no (unknown) (unknown) ROS Narrative: (units (unknown) date) unknown) (unknown) (no (unknown) (unknown) ROS (units (unkno wn) date) unknown) (unknown) (no (unknown) (unknown) Real-time (units (unkn own) date) scanning was unknown) performed of the pelvic organs, with image (unknown) (no (unknown) (unknown) Reason For Visit (units (unknown) date) unknown) (unknown) (no (unknown) (unknown) Recto-Vaginal: (units (unknown) date) no cul-de-sac unknown) fullness, no cul-de-sac tenderness and no (unknown) (no (unknown) (unknown) Resp (units (unkno wn) date) unknown) (unknown) (no (unknown) (unknown) Sclera: sclerae (units (unknown) date) normal unknown) (unknown) (no (unknown) (unknown) Signed By: (units (unk nown) date) <Electronically unknown) signed by Jesus Manuel Ma MD> (unknown) (no (unknown) (unknown) Signed (units (unkno wn) date) unknown) (unknown) (no (unknown) (unknown) Smoking Status: (units (unknown) date) Former smoker unknown) (unknown) (no (unknown) (unknown) Speculum Exam - (units (unknown) date) Cervix: normal unknown) appearance of the cervix, cervical os open, no (unknown) (no (unknown) (unknown) Speculum Exam - (units (unknown) date) Vagina: normal unknown) appearance of the vagina, normal vaginal (unknown) (no (unknown) (unknown) Speculum Exam: (units (unknown) date) cervical os open unknown) and no vaginal bleeding (unknown) (no (unknown) (unknown) Speech and (units (unk nown) date) Movement: speech unknown) and movement normal (unknown) (no (unknown) (unknown) Status: Acute (units ( unknown) date) unknown) (unknown) (no (unknown) (unknown) TECHNIQUE:? (units (un known) date) unknown) (unknown) (no (unknown) (unknown) Take one active (units (unknown) date) tablet daily x 3 unknown) weeks, discard the inactive tablets and (unknown) (no (unknown) (unknown) The nature the (units (unknown) date) patient's lower unknown) abdominal pain is uncertain. The right lower (unknown) (no (unknown) (unknown) The patient's (units ( unknown) date) urinary urgency unknown) she's been experiencing for the last two months (unknown) (no (unknown) (unknown) This note may (units ( unknown) date) have been all or unknown) partially generated using voice recognition (unknown) (no (unknown) (unknown) Thought Content: (units (unknown) date) normal unknown) (unknown) (no (unknown) (unknown) Thought Process: (units (unknown) date) normal unknown) (unknown) (no (unknown) (unknown) Time Coding (units (un known) date) Minutes Spent: unknown) (must be on same date of service/appointme nt) (unknown) (no (unknown) (unknown) Time Spent (units (unk nown) date) unknown) (unknown) (no (unknown) (unknown) Tobacco + (units (unkn own) date) Substance Use unknown) (unknown) (no (unknown) (unknown) Tobacco Status (units (unknown) date) unknown) (unknown) (no (unknown) (unknown) Total Time: 35 (units (unknown) date) unknown) (unknown) (no (unknown) (unknown) Ultrasound (units (unk nown) date) Report unknown) (unknown) (no (unknown) (unknown) Urethra: normal (units (unknown) date) appearance of the unknown) urethra (unknown) (no (unknown) (unknown) Urinalysis and (units (unknown) date) Microscopic 1 unknown) Week R39.15 - Urgency of urination (unknown) (no (unknown) (unknown) Urine Culture (units ( unknown) date) Today R39.15 - unknown) Urgency of urination (unknown) (no (unknown) (unknown) Uterus:? Uterus (units (unknown) date) is anteverted and unknown) normal in size at 9.1 x 3.8 x 6.0 cm. The (unknown) (no (unknown) (unknown) Vascular (units (unkno wn) date) waveforms are unknown) present within the bilateral ovaries. 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 (unknown) (no (unknown) (unknown) are noted (units (unkn own) date) unknown) (unknown) (no (unknown) (unknown) ay occur. (units (unkn own) date) Occasional unknown) wrong-word or 'sound-alike' substitutions may have (unknown) (no (unknown) (unknown) back and feels (units (unknown) date) like she is on unknown) her period when she in fact is not. Patient (unknown) (no (unknown) (unknown) bacteriuria. (units (u nknown) date) Patient to be unknown) notified of results when available. (unknown) (no (unknown) (unknown) but she does (units (u nknown) date) pass clots on unknown) occasion. She denies any intermenstrual bleeding or (unknown) (no (unknown) (unknown) cervical (units (unkno wn) date) discharge and unknown) nontender (unknown) (no (unknown) (unknown) child. The (units (unk nown) date) patient describes unknown) the pain as being present almost continually but (unknown) (no (unknown) (unknown) cul-de-sac (units (unk nown) date) fullness, No unknown) cul-de-sac tenderness and No cul-de-sac nodularity (unknown) (no (unknown) (unknown) cul-de-sac (units (unk nown) date) nodularlity unknown) (unknown) (no (unknown) (unknown) cycle and the (units ( unknown) date) pain she is unknown) experiencing. The option of ovulatory suppression (unknown) (no (unknown) (unknown) department for (units (unknown) date) evaluation and unknown) treatment. She is not using control at (unknown) (no (unknown) (unknown) discharge, no (units ( unknown) date) lesions, No unknown) vaginal bleeding and nontender (unknown) (no (unknown) (unknown) documentation.? (units (unknown) date) unknown) (unknown) (no (unknown) (unknown) drospirenone 3 (units (unknown) date) mg-ethinyl unknown) estradiol 0.03 mg tablet 1 tab PO DAILY #84 tabs (unknown) (no (unknown) (unknown) drospirenone-eth (units (unknown) date) inyl estradiol unknown) 3-0.03 mg (unknown) (no (unknown) (unknown) dyspareunia. (units (u nknown) date) Review of systems unknown) is also notable for 2 months of urinary urgency (unknown) (no (unknown) (unknown) experienced (units (un known) date) menarche at age unknown) 13 and has had regular menses throughout her adult (unknown) (no (unknown) (unknown) forwarded to her (units (unknown) date) PCP. unknown) (unknown) (no (unknown) (unknown) have occurred. (units (unknown) date) If there are any unknown) questions, please contact the Medical Records (unknown) (no (unknown) (unknown) her perception (units (unknown) date) that the episodes unknown) of pain are more severe and frequent near the (unknown) (no (unknown) (unknown) homogeneous. ? (units (unknown) date) The endometrium unknown) measures 4 mm combined thickness.? (unknown) (no (unknown) (unknown) in the bilateral (units (unknown) date) ovaries.? No unknown) adnexal masses are seen. (unknown) (no (unknown) (unknown) life but is not (units (unknown) date) sexually active unknown) at present. She has a long history of extreme (unknown) (no (unknown) (unknown) life. She (units (unkn own) date) currently has a unknown) 25 day cycle with 5 days of flow which is moderate (unknown) (no (unknown) (unknown) may or may not (units (unknown) date) be associated unknown) with whatever is causing her lower abdominal pain (unknown) (no (unknown) (unknown) midcycle (units (unkno wn) date) ovulatory pain unknown) for which she is actually been seen in emergency (unknown) (no (unknown) (unknown) midcycle (units (unkno wn) date) suggests however unknown) that there may be some relation between her ovulatory (unknown) (no (unknown) (unknown) myometrium is (units ( unknown) date) unknown) (unknown) (no (unknown) (unknown) notable for 3 (units ( unknown) date) spontaneous unknown) births with her largest being 8 lb 12 oz. Her most (unknown) (no (unknown) (unknown) occurred due to (units (unknown) date) the inherent unknown) limitations of voice recognition software. Please (unknown) (no (unknown) (unknown) of 15 cc. The (units ( unknown) date) left ovary unknown) measures 2.1 x 2.9 x 2.5 cm, with a calculated ovarian (unknown) (no (unknown) (unknown) of lower (units (unkno wn) date) abdominal pain. unknown) Pelvic exam is unremarkable and there is no adnexal (unknown) (no (unknown) (unknown) origin (? cecum) (units (unknown) date) but she has unknown) absolutely no GI symptoms related to her episodes (unknown) (no (unknown) (unknown) pain. She also (units (unknown) date) relates that she unknown) has in the past experienced mild deep (unknown) (no (unknown) (unknown) pain. no (units (unkno wn) date) bleeding. unknown) happening since June (unknown) (no (unknown) (unknown) particularly at (units (unknown) date) the midportion of unknown) her cycle when she typically has ovulatory (unknown) (no (unknown) (unknown) pelvis floor (units (u nknown) date) problems, unknown) randomly feels like she is going to pee her pants (unknown) (no (unknown) (unknown) postcoital (units (unk nown) date) bleeding. She has unknown) had no infertility issues during her reproductive (unknown) (no (unknown) (unknown) present but has (units (unknown) date) used a ParaGard unknown) IUD in the past after the of her 2nd (unknown) (no (unknown) (unknown) pt states it (units (u nknown) date) feels like she is unknown) on her period all month with cramping and back (unknown) (no (unknown) (unknown) quadrant is (units (un known) date) tender with the unknown) area of primary tenderness seeming to be GI in (unknown) (no (unknown) (unknown) read the note (units ( unknown) date) carefully and unknown) recognize, using context, where these substitutions (unknown) (no (unknown) (unknown) recent Pap was (units (unknown) date) less than a year unknown) ago and it was normal as have been all prior (unknown) (no (unknown) (unknown) sentences (units (unkn own) date) unknown) (unknown) (no (unknown) (unknown) she does have (units (u nknown) date) extremely severe unknown) exacerbations associated with low back discomfort (unknown) (no (unknown) (unknown) size normal, (units (un known) date) normal palpation, unknown) uterine mobility normal, uterine shape normal, No (unknown) (no (unknown) (unknown) software. 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 (units (u nknown) date) unknown) (unknown) (no (unknown) (unknown) syndrome but (units (u nknown) date) will start unknown) evaluation with UA and culture to R/O asymptomatic (unknown) (no (unknown) (unknown) tender, (units (unkno wn) date) non-tender and unknown) other (Bladder mildly tender to palpation) (unknown) (no (unknown) (unknown) tenderness on (units ( unknown) date) either side. The unknown) patient's history of severe ovulatory pain and (unknown) (no (unknown) (unknown) the (units (unkno wn) date) unknown) (unknown) (no (unknown) (unknown) trial of (units (unkno wn) date) continuous OC use unknown) to see if her pain responds to ovarian cycle (unknown) (no (unknown) (unknown) urethra (units (unkno wn) date) unknown) (unknown) (no (unknown) (unknown) volume of (units (unkn own) date) unknown) (unknown) (no (unknown) (unknown) volume (units (unkno wn) date) unknown) (unknown) (no (unknown) (unknown) with continuous (units (unknown) date) oral unknown) contraceptives discussed and patient agrees to a 4 month (unknown) (no (unknown) (unknown) without urge (units (u nknown) date) incontinence or unknown) stress incontinence. Patient's OB history is Result panel 8 (unknown) (no date) (unknown) (unknown) 0.2 e.u./dl (unkn own) (unknown) (no date) (unknown) (unknown) 1.010 (units (unkn own) unknown) (unknown) (no date) (unknown) (unknown) 5.0 (units (unkn own) unknown) (unknown) (no date) (unknown) (unknown) CLEAR (units (unkn own) unknown) (unknown) (no date) (unknown) (unknown) NEGATIVE (units (unkn own) unknown) (unknown) (no date) (unknown) (unknown) NEGATIVE g/dl (unkn own) (unknown) (no date) (unknown) (unknown) YELLOW (units (unkn own) unknown) (unknown) (no date) (unknown) (unknown) YELLOW (units (unkn own) unknown) Result panel 9 (unknown) (no date) (unknown) (unknown) 0.2 e.u./dl (unkn own) (unknown) (no date) (unknown) (unknown) 1 (units (unkn own) unknown) (unknown) (no date) (unknown) (unknown) 1.010 (units (unkn own) unknown) (unknown) (no date) (unknown) (unknown) 5-10 /HPF (units (unk nown) unknown) (unknown) (no date) (unknown) (unknown) 5.0 (units (unkn own) unknown) (unknown) (no date) (unknown) (unknown) CLEAR (units (unkn own) unknown) (unknown) (no date) (unknown) (unknown) NEGATIVE (units (unkn own) unknown) (unknown) (no date) (unknown) (unknown) NEGATIVE g/dl (unkn own) (unknown) (no date) (unknown) (unknown) None Seen (units (unk nown) unknown) (unknown) (no date) (unknown) (unknown) None Seen (units (unk nown) unknown) (unknown) (no date) (unknown) (unknown) YELLOW (units (unkn own) unknown) (unknown) (no date) (unknown) (unknown) YELLOW (units (unkn own) unknown) Result panel 10 (unknown) (no date) (unknown) (unknown) No growth. (units (un known) unknown) Social History No information. Vital Signs No information.
[2022-04-23] MEDS ORDERED: KETOROLAC 60 MG/2 ML VIAL IM STA (19:57)
[2022-04-23] MEDS ORDERED: HYDROmorphone 1 MG/ML CARPUJECT IM STA (19:57)
--- NOTE | 2022-04-23 19:58 | ED Physician Documentation ---
PD HPI BACK PAIN - Stated complaint Stated Complaint: BACK PX/SPASM - Chief complaint Chief Complaint: Back Pain - History obtained from History obtained from: Patient - Additional information Additional information: 32-year-old woman with history of sciatica with bending over after getting out of shower today and developed sudden severe back spasm just about an hour ago. This is much different than her previous sciatic pain. There is no radiation to it. It is across the low back. No weakness, numbness, tingling, saddle anesthesia, fever, possibility of . She has not tried anything for it. She cannot walk due to the pain. Review of Systems Constitutional: reports: Reviewed and negative Eyes: reports: Reviewed and negative Nose: reports: Reviewed and negative PD PAST MEDICAL HISTORY - Past Medical History Past Medical History: No - Past Surgical History Past Surgical History: Yes HEENT: Tonsil/Adenoidectomy - Present Medications Home Medications: Ambulatory Orders Medication Instructions Recorded Confirmed Cyclobenzaprine [Flexeril] 10 mg PO TID PRN #20 tablet 04/23/22 Oxycodone HCl/Acetaminophen 1 - 2 each PO Q6H PRN #14 tablet 04/23/22 [Percocet 5-325 mg Tablet] - Allergies Allergies/Adverse Reactions: Allergies Allergy/AdvReac Type Severity Reaction Status Date / Time No Known Drug Allergies Allergy Verified 04/23/22 18:10 - Social History Does the pt smoke?: No Smoking Status: Never smoker Does the pt drink ETOH?: No Does the pt have substance abuse?: No - Immunizations Immunizations are current?: Yes PD ED PE NORMAL - Vitals Vital signs reviewed: Yes - General General: Alert and oriented X 3, Other (She appears uncomfortable and is holding herself semierect in a wheelchair) - Abdomen Abdomen: Normal bowel sounds, Soft, Non tender - Back Back: No spinal TTP, Other (Unable to move her back due to pain) - Neuro Neuro: Alert and oriented X 3, Normal speech, Other (The patient has equal and normal Achilles and patellar reflexes bilaterally. Normal sensation in all areas of the legs. Patient denies saddle anesthesia. Normal strength in flexion-extension at the ankles, knees, and flexion of the hips.) Results - Vitals Vitals: Vital Signs - 24 hr 04/23/22 04/23/22 18:10 21:12 Temperature 37.1 C 37 C Heart Rate 75 72 Respiratory 20 19 Rate Blood Pressure 124/107 H 122/80 O2 Saturation 99 99 Oxygen O2 Source Room air PD MEDICAL DECISION MAKING - ED course ED course: This patient has seemingly uncomplicated musculoskeletal back pain. The patient has no "red flags." Specifically denies IV drug use, fevers, incontinence, saddle anesthesia. Spinal epidural abscess was considered, given that the patient has no fever, is not diabetic, has no spinal tenderness, does not use IV drugs, and has no bilateral neurologic symptoms, the diagnosis of spinal epidural abscess is considered exceedingly unlikely. She was administered 60 mg of IM Toradol and 2 mg of IM Dilaudid with significant improvement in her pain. The patient and family were counseled as to the diagnosis and need for follow- up. I counseled the patient with regard to signs and symptoms that would necessitate an urgent reevaluation in the emergency department. They understand they are welcome to return at any time if worse or if not improving as expected. This document was made in part using voice recognition software. While efforts are made to proofread this documents, sound alike and grammatical errors may occur. Departure - Departure Disposition: 01 Home, Self Care Clinical Impression: Back spasm Condition: Good Record reviewed to determine appropriate education?: Yes Instructions: ED Spasm Back No Trauma Prescriptions: Cyclobenzaprine [Flexeril] 10 mg PO TID PRN #20 tablet PRN Reason: Spasms Oxycodone HCl/Acetaminophen [Percocet 5-325 mg Tablet] 1 - 2 each PO Q6H PRN #14 tablet PRN Reason: pain Comments: As discussed, expect you to have severe pain for the next day or 2, after that it should peter out. You can take vfwk-eue-bemissa ibuprofen in addition to the prescription medications. Return for new or worsening symptoms. You can also take euzo-qrs-jqapiab Lidocaine patches. [facility] in [place]. Call your doctor to arrange a follow-up appointment, make the next available appointment. In the interim, return anytime if worse or if new symptoms develop. I am prescribing a short course of narcotic pain medication for you. These are potentially dangerous and addictive medications that should be used carefully. These medications may constipate you. Take an zaoi-zgn-ewlfdra stool softener (docusate) twice daily with plenty of water while taking these medications. If you go 24 hours without a bowel movement, take dwvr-aag-sgmvoma miralax, per package instructions. Do not drink or drive while taking these medications. If you received narcotic or sedating medications while in the emergency department, do not drive for 24 hours. Store this medication in a safe, secure place and out of reach of children. It is a violation of federal law to give or sell this medication to another person or to use in a manner other than prescribed. The ED will not refill narcotic prescriptions, including prescriptions lost or stolen. To dispose of unwanted medications: 1. [facility] [address] in [place] has a medication drop box. They accept prescription medications (in pill form) Sunday through Sunday 9:00 a.m. to 5:00 p.m. 2. The [facility] [employer] accepts prescription medications (in pill form only) for disposal year round. Call for more information. 3. Contact the [facility] for the next [facility] sponsored prescription drug collection event. , [phone], or [phone]; Note that many narcotic pain relievers also contain Tylenol/acetaminophen. Please ensure that your total dose of acetaminophen from all sources does not exceed 3 g (3000 mg) per day. Forms: Activity restrictions Discharge Date/Time: 04/23/22 21:13
[2022-04-23] MEDS ORDERED: CYCLOBENZAPRINE 10 MG Prepack 2 PO PRN (21:01)
[2022-04-23] MEDS ORDERED: oxyCODONE/ACET 5/325 Prepack 4 PO STA (21:01)
[2022-04-23 21:14] VITALS: BP 122/80
== END 2022-04-23 21:13 | disposition home or self-care (01) ==
LOC: ED 18:03
DX: M62.830 Muscle spasm of back (principal)
CPT/HCPCS: 96372; 99283; J1170